=== PATIENT | male | born 1935 | race Caucasian/White ===

== ENCOUNTER → 2019-02-19 | Outpatient (CLI) | payer OTHER | END | disposition home or self-care (01) | LOC: SURG 13:08 | PROVIDERS: ATTEND Anesthesiology Pain Medicine | DX: M47.814 Spondylosis without myelopathy or radiculopathy, thoracic region (principal); M79.18 Myalgia, other site; I10 Essential (primary) hypertension; Z79.02 Long term (current) use of antithrombotics/antiplatelets | CPT/HCPCS: 99213 ==

== ENCOUNTER 2021-09-07 09:20 | Emergency (ER) | payer OTHER ==
[~2021-09-07] VITALS: Ht 180.3 cm; Wt 76.8 kg
--- NOTE | 2021-09-07 09:48 | PHYS DOC ---
Past History Past Surgical History: Other Additional Past Surgical Histo: unknown General Adult EDM: Chief Complaint: ALTERED MENTAL STATUS HPI: HPI: 85-year-old male presents via EMS as a diversion from the [place] for altered mental status. The patient stays at an assisted living facility in the area and has a roommate. The history is provided from EMS reports as the patient is not answering any questions. Patient was reported to be acting different over the last 3 to 4 days. This morning, he did not speak to his roommate at home. He may have had a syncopal event just before 9 AM. Since that time, the patient has not been reacting to his surroundings. He was only responsive to pain for EMS. They found his O2 saturation to be 89%. They placed him on 3 L and he improved to the mid 90s. The patient does not normally wear oxygen. Review of Systems: Review of Systems: Unable to evaluate due to patient not talking Physical Exam: PE: Constitutional: Well developed, well nourished, no acute distress, non-toxic appearance. [] HENT: Normocephalic, atraumatic, bilateral external ears normal, oropharynx moist, no oral exudates, nose normal. [] Neck: Normal range of motion, no tenderness, supple, no stridor. [] Cardiovascular: Heart rate regular rhythm, no murmur [] Lungs & Thorax: Bilateral breath sounds clear to auscultation [] Abdomen: Bowel sounds normal, soft, no tenderness, no masses, no pulsatile masses. [] [] Extremities: No tenderness, no cyanosis, no clubbing, no edema. [] Neurologic: Spontaneously opens eyes, moves both upper extremities [] [] Current Patient Data: Vital Signs: Vital Signs Date Time Temp Pulse Resp B/P (MAP) Pulse Ox O2 Delivery O2 Flow Rate FiO2 09/07/21 09:27 98.3 90 20 167/77 (107) 97 Room Air EKG: EKG: Sinus rhythm, rate 83, normal axis, no ST elevation or depression, prolonged TX interval, first-degree heart block. [] Radiology/Procedures: Radiology/Procedures: [] Impressions: CT Head without contrast 09/07/2021 9:31 AM Indication: Altered mental status Comparison: None Findings: No intracranial hemorrhage is seen. No evidence of acute territorial infarct is seen. Note that CT is limited in sensitivity for acute ischemia. Age-related atrophic changes are noted. There is patchy periventricular and deep white matter hypoattenuation which is nonspecific, but most commonly relates to chronic small vessel disease. Areas of hypodensity in the bilateral basal ganglia likely reflect prior lacunar infarcts. No abnormal extra axial fluid collection is identified. No mass effect or midline shift is seen. No acute osseous abnormalities are seen. Impression: 1. No acute intracranial process identified 2. Age-related atrophy, and evidence of chronic small vessel disease as described CT DOSING PQRS STATEMENT: One or more of the following individualized dose reduction techniques were utilized for this examination: 1. Automated exposure control 2. Adjustment of the mA and/or kV according to patient size 3. Use of iterative reconstruction technique Electronically signed by: Damon Padilla MD (09/07/2021 10:11 AM) [id number] DICTATED AND SIGNED BY: DAMON PADILLA MD DATE: 09/07/21 1007 CC: LILLIAM MEHTA DO; MEGA ZUNIGA ~MTH0 0 Single view of the chest. 09/07/2021 9:31 AM Indication: Altered mental status Comparison: None Findings: No pneumothorax or pleural effusion is seen. No focal infiltrate is seen. Heart size is normal. Mild diffuse interstitial coarsening noted. Chronic right-sided rib fractures noted. No acute osseous changes are identified. IMPRESSION: No radiographic evidence of acute cardio pulmonary process Electronically signed by: Damon Padilla MD (09/07/2021 10:12 AM) [id number] DICTATED AND SIGNED BY: DAMON PADILLA MD DATE: 09/07/21 1011 CC: LILLIAM MEHTA DO; MEGA ZUNIGA ~MTH0 0 Heart Score: C/O Chest Pain: N/A Risk Factors: Risk Factors: DM, Current or recent (<one month) smoker, HTN, HLP, family history of CAD, obesity. Risk Scores: Score 0 - 3: 2.5% MACE over next 6 weeks - Discharge Home Score 4 - 6: 20.3% MACE over next 6 weeks - Admit for Clinical Observation Score 7 - 10: 72.7% MACE over next 6 weeks - Early Invasive Strategies Course & Med Decision Making: Course & Med Decision Making Pertinent Labs and Imaging studies reviewed. (See chart for details) On arrival the patient was lying in bed with elevated blood pressure but normal heart rate. He will spontaneously open his eyes. He has also moved both of his upper extremities spontaneously. He does not respond only talk to him or asking questions. He made movements to be helpful as we removed his shirt. Venous blood gas unremarkable. The patient's labs are unremarkable. His urinalysis is negative for infection. I am not sure what is causing the patient's altered mental status. I cannot rule out that this is not behavioral. The patient does speak out from under his eyelids on occasion. When I assisted opening one of his eyelids he reacted and it was not painful stimuli. He will not speak for move voluntarily to command. I spoke with Dr. Whyte and he has accepted the patient for admission. He will consult neurology. [] Keli Disclaimer: Keli Disclaimer: This electronic medical record was generated, in whole or in part, using a voice recognition dictation system. Departure Departure: Impression: Primary Impression: Altered mental status Disposition: ADMITTED INPATIENT Admitting Physician: Saravanan Whyte Condition: STABLE Referrals: MEGA ZUNIGA (PCP) LILLIAM MEHTA DO Sep 07, 2021 09:48
[2021-09-07 09:51] LABS: BASO % 0 % (0-3); EOS # 0.1 x10^3/uL (0.0-0.7); EOS % 3 % (0-3); HEMATOCRIT 44.1 % (39.0-53.0); HEMOGLOBIN 14.2 g/dL (13.0-17.5); LYMPH # 1.3 x10^3/uL (1.0-4.8); LYMPH % 27 % (24-48); MEAN CORPUSCULAR HEMOGLOBIN 30 pg (25-35); MEAN CORPUSCULAR HGB CONC 32 g/dL (31-37); MEAN CORPUSCULAR VOLUME 92 fL (79-100); MONO # 0.5 x10^3/uL (0.0-1.1); MONO % 10 % (0-9); NEUT # 2.9 x10^3uL (1.8-7.7); NEUT % 60 % (31-73); PLATELET COUNT 129 x10^3/uL (140-400); RED BLOOD COUNT 4.78 x10^6/uL (4.30-5.70); RED CELL DISTRIBUTION WIDTH 14.2 % (11.5-14.5); WHITE BLOOD COUNT 4.9 x10^3/uL (4.0-11.0)
[2021-09-07 09:59] LABS: CALCIUM 9.2 mg/dL (8.5-10.1); CREATININE 0.9 mg/dL (0.7-1.3); GFR 80.6
[2021-09-07 10:05] LABS: ALBUMIN 2.9 g/dL (3.4-5.0); ALBUMIN/GLOBULIN RATIO 0.9 (1.0-1.7); TOTAL BILIRUBIN 0.5 mg/dL (0.2-1.0); TOTAL PROTEIN 6.3 g/dL (6.4-8.2)
--- NOTE | 2021-09-07 10:13 | RAD ---
CT Head without contrast 09/07/2021 9:31 AM Indication: Altered mental status Comparison: None Findings: No intracranial hemorrhage is seen. No evidence of acute territorial infarct is seen. Note that CT is limited in sensitivity for acute ischemia. Age-related atrophic changes are noted. Ther e is patchy periventricular and deep white matter hypoattenuation which is nonspecific, but most comm only relates to chronic small vessel disease. Areas of hypodensity in the bilateral basal ganglia lik ashlee reflect prior lacunar infarcts. No abnormal extra axial fluid collection is identified. No mass effect or midline shift is seen. No acute osseous abnormalities are seen. Impression: 1. No acute intracranial process identified 2. Age-related atrophy, and evidence of chronic small vessel disease as described CT DOSING PQRS STATEMENT: One or more of the following individualized dose reduction techniques were utilized for this examinat ion: 1. Automated exposure control 2. Adjustment of the mA and/or kV according to patient size 3. Use of iterative reconstruction technique Electronically signed by: Damon Kaufman MD (09/07/2021 10:11 AM) [id number]
--- NOTE | 2021-09-07 10:14 | RAD ---
Single view of the chest. 09/07/2021 9:31 AM Indication: Altered mental status Comparison: None Findings: No pneumothorax or pleural effusion is seen. No focal infiltrate is seen. Heart size is nor mal. Mild diffuse interstitial coarsening noted. Chronic right-sided rib fractures noted. No acute os seous changes are identified. IMPRESSION: No radiographic evidence of acute cardio pulmonary process Electronically signed by: Damon Kaufman MD (09/07/2021 10:12 AM) [id number]
--- NOTE | 2021-09-07 11:43 | EKG ---
[address] [address] Test Date: 2021-09-07 Test Time: 09:34:31 Pat Name: LINDA JORDAN Department: Room: Gender: M Freight Con[employer]: : 1935 Requested By: LILLIAM MEHTA Order Number: [id number] Reading MD: Barrington Verdugo Measurements Intervals [place] Rate: 83 P: 90 RI: 222 QRS: 40 QRSD: 82 T: 47 QT: 362 QTc: 426 Interpretive Statements SINUS RHYTHM PROLONGED RI INTERVAL LOW LIMB LEAD VOLTAGE ABNORMAL ECG RI6.02 No previous ECG available for comparison Electronically Signed On 09-09-2021 7:25:29 LEASE ADMINISTRATION SUPERVISOR by Barrington Verdugo
[2021-09-07 13:11] LABS: BARBITURATES NEG (NEG); BENZODIAZEPINES NEG (NEG); CANNABINOIDS NEG (NEG); COCAINE NEG (NEG); METHADONE NEG (NEG); OPIATES NEG (NEG); PHENCYCLIDINE NEG (NEG)
[2021-09-07 13:17] LABS: BACTERIA,URINE 0 /HPF (0-FEW); BILIRUBIN,URINE NEG (NEG); CLARITY,URINE CLEAR; COLOR,URINE YELLOW; GLUCOSE,URINE NEG (NEG); NITRITE,URINE NEG (NEG); RBC,URINE 0 /HPF (0-2); WBC,URINE 0 /HPF (0-4)
[2021-09-07 13:18] LABS: AMPHETAMINE/METHAMPHETAMINE NEG (NEG)
[2021-09-07] MEDS ORDERED: ONDANSETRON PF 4 MG/2 ML VIAL. IVP PRN (13:30)
[2021-09-07] MEDS ORDERED: ACETAMINOPHEN 325 MG TABLET PO PRN (13:30)
[2021-09-07 15:44] VITALS: BP 133/70
== END 2021-09-07 15:36 | disposition home or self-care (01) ==
LOC: ER 09:20
DX: R41.82 Altered mental status, unspecified (principal)
CPT/HCPCS: 36415; 70450; 71045; 80053; 80307; 81001; 82803; 84484; 85025; 93005; 99285-25